=== PATIENT | female | born 1975 | race Hispanic/Latino ===

== ENCOUNTER 2022-02-03 13:58 | Emergency (ER) | payer SELFPAY ==
--- NOTE | 2022-02-03 21:53 | Emergency Department Report ---
ED Psych HPI - General Chief Complaint: Recheck/Abnormal Lab/Rx Stated Complaint: MED REFILL Source: patient Mode of arrival: Ambulatory - History of Present Illness Initial Comments: This patient presents to the emergency department after a relative called 911 because she stated she was acting abnormally. Patient has a psychiatric history and stopped taking her medications in July of last year. The patient at this time denies suicidal or homicidal ideation. She denies any other medical problems. The patient states that she had discussed with her psychiatrist the plan to stop taking medication and was warned that this would happen. The patient states that she has medication at home. The patient describes the event at work as a crisis -: Gradual Associated Symptoms: denies: confusion, headache, nausea, vomiting, insomnia Treatments Prior to Arrival: none - Related Data Previous Rx's Medication Instructions Recorded Last Taken Type Lurasidone HCl [Latuda] 40 mg PO QDAY #10 tab 02/03/22 Unknown Rx Allergies Allergy/AdvReac Type Severity Reaction Status Date / Time No Known Allergies Allergy Verified 02/03/22 14:03 ED Review of Systems ROS: Stated complaint: MED REFILL Other details as noted in HPI Comment: All other systems reviewed and negative Respiratory: denies: cough, shortness of breath, wheezing Cardiovascular: denies: chest pain, palpitations Endocrine: no symptoms reported Gastrointestinal: denies: abdominal pain, nausea, diarrhea Neurological: denies: headache, weakness, paresthesias Psychiatric: anxiety. denies: auditory hallucinations, visual hallucinations, homicidal thoughts, suicidal thoughts ED Past Medical Hx - Medications Home Medications: Home Medications Medication Instructions Recorded Confirmed Last Taken Type Lurasidone HCl [Latuda] 40 mg PO QDAY #10 tab 02/03/22 Unknown Rx ED Physical Exam - General Limitations: No Limitations General appearance: alert, in no apparent distress - Head Head exam: Present: atraumatic, normocephalic - Eye Eye exam: Present: normal appearance - ENT ENT exam: Present: mucous membranes moist - Neck Neck exam: Present: normal inspection - Respiratory Respiratory exam: Present: normal lung sounds bilaterally. Absent: respiratory distress - Cardiovascular Cardiovascular Exam: Present: regular rate, normal rhythm. Absent: systolic murmur, diastolic murmur, rubs, gallop - GI/Abdominal GI/Abdominal exam: Present: soft, normal bowel sounds - Rectal Rectal exam: Present: deferred - Extremities Exam Extremities exam: Present: normal inspection, full ROM - Back Exam Back exam: Present: normal inspection, full ROM - Neurological Exam Neurological exam: Present: alert, oriented X3 - Psychiatric Psychiatric exam: Present: anxious. Absent: depressed, homicidal ideation, suicidal ideation - Skin Skin exam: Present: warm, dry ED Course Vital Signs 02/03/22 02/03/22 02/04/22 14:03 20:03 00:00 Temperature 98.1 F 98.6 F 98 F Pulse Rate 110 H 102 H 107 H Respiratory 16 20 18 Rate Blood Pressure 153/95 Blood Pressure 170/110 138/86 [Left] O2 Sat by Pulse 97 90 100 Oximetry ED Medical Decision Making - Medical Decision Making On evaluation the patient was noted to be cooperative and in no acute distress. It would appear that what happened at work was consistent with a psychotic break. The patient had been noncompliant with medications and states that she has medicine at home. She has spoken to her psychiatrist and advised that she was going to stop taking the medication because she felt okay. The patient agrees of discharge that she will take the medication. I spoke with a relative of the patient who stated that he was her brother and was willing to pick her up if she was discharged Critical care attestation.: If time is entered above; I have spent that time in minutes in the direct care of this critically ill patient, excluding procedure time. ED Disposition Clinical Impression: Manic behavior Disposition: 01 HOME / SELF CARE / HOMELESS Is pt being admited?: No Does the pt Need Aspirin: No Condition: Stable Instructions: Tania, Managing Bipolar Disorder Additional Instructions: You should contact your psychiatrist at your earliest convenience to let her know that you had psychotic break which has resolved without medications. You should follow-up as soon as he possibly can. Please return to the emergency department if there are any further issues that needs to be addressed. Prescriptions: Lurasidone HCl [Latuda] 40 mg PO QDAY #10 tab Referrals: LILIANA KEATING MD [Primary Care Provider] - 3-5 Days
[2022-02-04 02:49] VITALS: BP 153/95
== END 2022-02-04 00:30 | disposition home or self-care (01) ==
LOC: ED 13:58
DX: F30.2 Manic episode, severe with psychotic symptoms (principal); Z79.899 Other long term (current) drug therapy
CPT/HCPCS: 99282